=== PATIENT | male | born 1970 | race African-American/Black ===

== ENCOUNTER 2016-09-12 13:28 | Emergency (ER) | payer OTHER ==
[2016-09-12 13:47] VITALS: TEMP 98.1; BMI 29.9
[2016-09-12] MEDS ORDERED: KETOROLAC TROMETHAMINE 60 MG/2 ML VIAL IM ONE (13:54)
--- NOTE | 2016-09-12 13:56 | PDOC ---
History of Present Illness - General Chief Complaint: Pain, Acute Stated Complaint: LEFT SHOULDER PAIN Time Seen by Provider: 09/12/16 13:49 - History of Present Illness Initial Comments: 09/12/16 14:06 Chief complaint: Left shoulder pain History of present illness: Patient complains of gradual onset of pain in the left shoulder with difficulty raising his arm for several days. No injury, no weight lifting or other exercise, no past history of shoulder pain or bone or joint disease. Taking Advil without relief Review of systems: No recent fevers/chills, URI symptoms, sore throat, cough, chest pain, shortness of breath, abdominal pain, nausea, vomiting, diarrhea. Remainder systems reviewed and found to be negative Past medical history: No serious medical or surgical illnesses past or present including hypertension or diabetes. No tobacco alcohol or nonprescription drugs. 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 Afebrile, vital signs normal PERRLA, ENT clear Neck supple without bruit mass or nodes. No point tenderness or deformity of the cervical vertebrae Lungs clear to P&A full breath sounds bilaterally CV S1 and S2 normal without murmur or gallop pulses full and symmetric no JVD or edema Abdomen benign Neurological C2 to 12 intact. No demonstrable focal sensory deficits. There is inability to fully abduct the left arm due to pain. But this does not appear to be a paralysis Extremities: Left shoulder is without deformity or point tenderness. There is limited range of motion actively and passively to approximately 90 due to pain. Circulatory intact. Good pulses and capillary refill. No demonstrable sensory deficits. 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 Plan: X-ray, and analgesic and anti-inflammatory and may be muscle relaxant. Further evaluation depending on results of the x-ray. Past History - Past Medical History Allergies/Adverse Reactions: Allergies Allergy/AdvReac Type Severity Reaction Status Date / Time No Known Allergies Allergy Verified 09/12/16 13:29 Home Medications: Ambulatory Orders Cyclobenzaprine HCl [Flexeril 10 mg] 10 mg PO TID #15 tablet 09/12/16 Ketorolac Tromethamine [Toradol] 10 mg PO Q6H #20 tablet 09/12/16 Other medical history: DENIES - Immunization History Immunization Up to Date: Yes - Psycho/Social/Smoking Cessation Hx Anxiety: No Suicidal Ideation: No Smoking History: Never smoked Information on smoking cessation initiated: No Hx Alcohol Use: No Drug/Substance Use Hx: No Substance Use Type: None *Physical Exam - Vital Signs Last Vital Signs Temp Pulse Resp BP Pulse Ox 98.1 F 76 20 146/105 97 09/12/16 13:29 09/12/16 13:29 09/12/16 13:29 09/12/16 13:29 09/12/16 13:29 Medical Decision Making - Medical Decision Making 09/12/16 15:18 X-ray is negative. Patient with considerable pain relief after Toradol. Sling for rest. Continue Toradol and Flexeril. Follow-up with orthopedist. Patient is informed of his high blood pressure. While this may be due to pain, he is advised to have it rechecked in 3-5 days with his primary physician, and to consider treatment if it remains elevated or worsens. He understands and agrees. *DC/Admit/Observation/Transfer Diagnosis at time of Disposition: Tendinitis of left shoulder - Discharge Dispostion Disposition: HOME Condition at time of disposition: Improved Admit: No - Prescriptions Prescriptions: Cyclobenzaprine HCl [Flexeril 10 mg] 10 mg PO TID #15 tablet Ketorolac Tromethamine [Toradol] 10 mg PO Q6H #20 tablet - Referrals Referrals: Jared Hess MD [Staff Physician] - 1 week - Patient Instructions Printed Discharge Instructions: DI for Shoulder Sprain, How to Use a Sling Additional Instructions: Your blood pressure is elevated today to a moderate extent. This may be due to your pain, however, it needs to be closely followed and rechecked within 3-5 days by your primary physician. If it doesn't improve or worsens, he may need treatment to avoid serious problems with her heart or your brain in the future. - Post Discharge Activity Work/School Note: Back to Work
[2016-09-12 14:53] VITALS: BP 158/111; PULSE 67
== END 2016-09-12 15:21 | disposition home or self-care (01) ==
LOC: FER 13:28
PROC: 3E0233Z Introduction of Anti-inflammatory into Muscle, Percutaneous Approach (ICD-10-PCS; principal; 2016-09-12)
DX: M75.92 Shoulder lesion, unspecified, left shoulder (principal)
CPT/HCPCS: 73030-TC-LT; 96372; 99283-25

== ENCOUNTER 2016-09-14 05:01 | Emergency (ER) | payer OTHER ==
[2016-09-14 05:07] VITALS: BP 150/112; PULSE 74; TEMP 97.6; BMI 29.9
[2016-09-14] MEDS ORDERED: KETOROLAC TROMETHAMINE 60 MG/2 ML VIAL ONE (05:20)
[2016-09-14] MEDS ORDERED: KETOROLAC TROMETHAMINE 60 MG/2 ML VIAL IM ONE (05:20)
--- NOTE | 2016-09-14 05:21 | PDOC ---
History of Present Illness - General Chief Complaint: Pain Stated Complaint: LT SHOULDER PAIN History Source: Patient Exam Limitations: No Limitations - History of Present Illness Initial Comments: 09/14/16 05:20 This is a 45-year-old male who comes in complaining of left shoulder pain. Patient was here 2 days is and was seen and evaluated and had an x-ray which was negative. Patient was referred to an orthopedist but did not see the orthopedist. Patient didn't follow up with his primary care doctor. Patient said that the prescriptions he was given which were for nonnarcotic pain medication are not strong enough and he needs something stronger. Patient otherwise denies no new injury. PAST MEDICAL HISTORY: no significant history PAST SURGICAL HISTORY: no significant history FAMILY HISTORY: no pertinant history SOCIAL HISTORY: Pt lives with family and is employed. MEDICATIONS: reviewed ALLERGIES: As per nursing notes Review of Systems General: No fevers or chills, no weakness, no weight loss HEENT: No change in vision. No sore throat,. No ear pain CardioVascular: No chest pain or shortness of breath Respiratory:No cough, or wheezing. Gastrointestinal: no nausea, vomitting, diarrhea or constipation, No rectal bleeding Genitourinary: No dysuria, hematuria, or frequency Musculoskeletal: No joint or muscle pain or swelling Neurologic: No headache, vertigo, dizziness or loss of consciousness Psychiatric: nor depression Skin: No rashes or easy bruising Endocrine: no increased thirst or abnormal weight change Allergic: no skin or latex allergy All other systems reviewed and normal GENERAL: The patient is awake, alert, and fully oriented, in no acute distress. HEAD: Normal with no signs of trauma. EYES: Pupils equal, round and reactive to light, extraocular movements intact, sclera anicteric, conjunctiva clear. EXTREMITIES: There is decreased range of motion of the patient's left shoulder, there is no swelling, ecchymosis or point tenderness neurovascular distal is intact. NEUROLOGICAL: Normal speech, normal gait. PSYCH: Normal mood, normal affect. SKIN: Warm, Dry, normal turgor, no rashes or lesions noted. Assessment and plan: Explained to patient that this is a problem that requires an orthopedist as it is not getting better with traditional nonnarcotic treatment. Explained to patient I did not want to give him narcotic pain medication for a chronic problem and that it was important that he follow-up with a orthopedist. Told patient he should continue to take the medication he is on and I did give him a shot of Toradol here in the emergency room. Told him he should see the orthopedist today if at all possible. Past History - Past Medical History Allergies/Adverse Reactions: Allergies Allergy/AdvReac Type Severity Reaction Status Date / Time No Known Allergies Allergy Verified 09/12/16 13:29 Home Medications: Ambulatory Orders Cyclobenzaprine HCl [Flexeril 10 mg] 10 mg PO TID #15 tablet 09/12/16 Ketorolac Tromethamine [Toradol] 10 mg PO Q6H #20 tablet 09/12/16 - Immunization History Immunization Up to Date: Yes - Psycho/Social/Smoking Cessation Hx Anxiety: No Suicidal Ideation: No Smoking History: Never smoked Hx Alcohol Use: No Drug/Substance Use Hx: No Substance Use Type: None *Physical Exam - Vital Signs Last Vital Signs Temp Pulse Resp BP Pulse Ox 97.6 F 74 16 150/112 98 09/14/16 05:05 09/14/16 05:05 09/14/16 05:05 09/14/16 05:05 09/14/16 05:05 *DC/Admit/Observation/Transfer Diagnosis at time of Disposition: Tendinitis of left shoulder - Discharge Dispostion Disposition: HOME Condition at time of disposition: Stable Admit: No - Patient Instructions Additional Instructions: Continue to take the medications were prescribed. In addition to that you can also take Tylenol. Call the orthopedist today if he needed an orthopedist call Dr. Vanessa at for an appointment. Return to the emergency department immediately with ANY new, persistent or worsening symptoms. Continue any medications as previously prescribed by your physician. You should follow up with your primary doctor as soon as possible regarding today's emergency department visit. . Please make sure your doctor reviews the results of your emergency evaluation. Thank you for coming to the Emergency Department today for your care. It was a pleasure to see you today. Please note that your evaluation is INCOMPLETE until you follow-up with your doctor.
== END 2016-09-14 05:27 | disposition home or self-care (01) ==
LOC: FER 05:01
PROC: 3E0233Z Introduction of Anti-inflammatory into Muscle, Percutaneous Approach (ICD-10-PCS; principal; 2016-09-14)
DX: M75.22 Bicipital tendinitis, left shoulder (principal)
CPT/HCPCS: 96372; 99282-25

== ENCOUNTER 2016-12-21 23:21 | Emergency (ER) | payer BC, OTHER ==
[2016-12-21 23:26] VITALS: BP 144/92; PULSE 88; TEMP 99.1; BMI 29.9
[2016-12-21] MEDS ORDERED: predniSONE 20 MG TABLET (UD) PO ONE (23:30)
[2016-12-21] MEDS ORDERED: IBUPROFEN 600 MG TABLET (FP) PO ONE ×2 (23:30→23:35)
--- NOTE | 2016-12-21 23:31 | PDOC ---
History of Present Illness - General Chief Complaint: Sore Throat Stated Complaint: SORE THROAT Time Seen by Provider: 12/21/16 23:25 History Source: Patient Exam Limitations: No Limitations - History of Present Illness Initial Comments: 12/21/16 23:32 This is a 46-year-old male who comes in complaining of sore throat and pain in his neck with swallowing. Patient denies any headache, chest pain, cough, congestion, fever, chills or body aches. Patient denies any other complaints. Patient did not take anything for the pain. Patient denies any change in his voice. Patient is able to swallow his secretions. PAST MEDICAL HISTORY: no significant history PAST SURGICAL HISTORY: no significant history FAMILY HISTORY: no pertinant history SOCIAL HISTORY: Pt lives with family and is employed. MEDICATIONS: reviewed ALLERGIES: As per nursing notes Review of Systems General: No fevers or chills, no weakness, no weight loss HEENT: No change in vision. Sore throat+ CardioVascular: No chest pain or shortness of breath Respiratory:No cough, or wheezing. Gastrointestinal: no nausea, vomitting, diarrhea or constipation, No rectal bleeding Genitourinary: No dysuria, hematuria, or frequency Musculoskeletal: No joint or muscle pain or swelling Neurologic: No headache, vertigo, dizziness or loss of consciousness Psychiatric: nor depression Skin: No rashes or easy bruising Endocrine: no increased thirst or abnormal weight change Allergic: no skin or latex allergy All other systems reviewed and normal GENERAL: The patient is awake, alert, and fully oriented, in no acute distress. HEAD: Normal with no signs of trauma. EYES: Pupils equal, round and reactive to light, extraocular movements intact, sclera anicteric, conjunctiva clear. THROAT: Posterior oropharynx is some mild erythema, tonsils are otherwise normal and there is no exudate NECKIs supple there is no meningeal signs: There is some small bilateral submandibular lymphadenopathy anteriorly EXTREMITIES: Normal range of motion, no edema. NEUROLOGICAL: Normal speech, normal gait. PSYCH: Normal mood, normal affect. SKIN: Warm, Dry, normal turgor, no rashes or lesions noted. Assessment and plan: This is a 46-year-old male with a mild pharyngitis most likely viral as patient does not have fever. Patient given prednisone for the inflammatory response of the pharyngitis and Motrin for pain and will follow-up with his primary care doctor as Past History - Past Medical History Allergies/Adverse Reactions: Allergies Allergy/AdvReac Type Severity Reaction Status Date / Time No Known Allergies Allergy Verified 09/12/16 13:29 Home Medications: Ambulatory Orders NK [No Known Home Medication] 12/21/16 Other medical history: DENIES - Immunization History Immunization Up to Date: Yes - Suicide/Smoking/Psychosocial Hx Smoking History: Never smoked Hx Alcohol Use: No Drug/Substance Use Hx: No Substance Use Type: None *Physical Exam - Vital Signs Last Vital Signs Temp Pulse Resp BP Pulse Ox 99.1 F 88 16 144/92 98 12/21/16 23:24 12/21/16 23:24 12/21/16 23:24 12/21/16 23:24 12/21/16 23:24 *DC/Admit/Observation/Transfer Diagnosis at time of Disposition: Acute viral pharyngitis - Discharge Dispostion Disposition: HOME Condition at time of disposition: Stable Admit: No - Patient Instructions Additional Instructions: For the sore throat and neck pain take ibuprofen 3 tablets 3 times a day with food don't take on an empty stomach. Return to the emergency department immediately with ANY new, persistent or worsening symptoms. Continue any medications as previously prescribed by your physician. You should follow up with your primary doctor as soon as possible regarding today's emergency department visit. . Please make sure your doctor reviews the results of your emergency evaluation. Thank you for coming to the Emergency Department today for your care. It was a pleasure to see you today. Please note that your evaluation is INCOMPLETE until you follow-up with your doctor.
[2016-12-21] MEDS ORDERED: predniSONE 20 MG TABLET (UD) ONE (23:35)
== END 2016-12-21 23:39 | disposition home or self-care (01) ==
LOC: FER 23:21
DX: J02.8 Acute pharyngitis due to other specified organisms (principal); B97.89 Other viral agents as the cause of diseases classified elsewhere
CPT/HCPCS: 99281-25

== ENCOUNTER 2018-07-21 13:58 | Emergency (ER) | payer BC ==
[2018-07-21 14:08] VITALS: BP 135/95; PULSE 81; TEMP 98.5; BMI 29.9
--- NOTE | 2018-07-21 14:29 | PDOC ---
History of Present Illness - General Chief Complaint: Wound Stated Complaint: BOIL TO RIGHT AXILLA Time Seen by Provider: 07/21/18 14:21 - History of Present Illness Initial Comments: 07/21/18 15:02 47 years old no cigarette past medical history presents with abscess to right axilla no history of similar now starting to drain on its own Fever no chills swelling around the area. Past History - Past Medical History Allergies/Adverse Reactions: Allergies Allergy/AdvReac Type Severity Reaction Status Date / Time No Known Allergies Allergy Verified 07/21/18 14:01 Home Medications: Ambulatory Orders Clindamycin [Cleocin -] 450 mg PO Q8H #63 capsule 07/21/18 COPD: No Other medical history: DENIES - Immunization History Immunization Up to Date: Yes - Suicide/Smoking/Psychosocial Hx Smoking History: Never smoked Hx Alcohol Use: No Drug/Substance Use Hx: No Substance Use Type: None Review of Systems - Review of Systems Comments:: 07/21/18 15:02 ROS: A complete review of 10 out of 10 review of systems is taken and is negative apart from what is previously mentioned below and in the HPI. *Physical Exam - Vital Signs Last Vital Signs Temp Pulse Resp BP Pulse Ox 98.5 F 81 16 135/95 100 07/21/18 14:00 07/21/18 14:00 07/21/18 14:00 07/21/18 14:00 07/21/18 14:00 - Physical Exam Comments: 07/21/18 15:04 Vitals: Triage Vital signs reviewed General Appearance: no acute distress, well nourished well developed, Head: Atraumatic, Chest Wall: Nontender Extremities: Full range of motion to all extremities, no cyanosis, clubbing, or edema Skin: Warm and dry, 3 cm x 3 cm abscess to right axilla with surrounding cellulitis Psych: normal mood, normal affect General Appearance: Yes: Nourished Procedures - Incision and Drainage I&D Site: Right: Axilla Betadine cleansed: Yes Anesthesia: 2% Lidocaine Volume(ml): 10 Blade Size: 11 Iodinated Packin/2 in Medical Decision Making - Medical Decision Making 07/21/18 15:09 Moderate sized axilla abscess 3 cm x 3 cm in size and drained with approximately 10-15 mL of purulent discharge drained Packed with half-inch perform dressing Given surrounding cellulitis and penicillin ALLERGY place and placed on 7 day course of clindamycin will return in 2 days for packing change. Findings, the need for follow-up and strict return instructions discussed with patient. *DC/Admit/Observation/Transfer Diagnosis at time of Disposition: Abscess - Discharge Dispostion Disposition: HOME Condition at time of disposition: Stable Decision to Admit order: No - Referrals Referrals: [facility] [place] [Provider Group] - Patient Instructions Printed Discharge Instructions: DI for Incision and Drainage of a Skin Abscess Additional Instructions: Leave packing in place keep covered with gauze. Return to ED in 2 days for packing change. Clindamycin as prescribed. Take with an over the counter probiotic as directed on package. Return to ED for any fever severe worsening infection or for any concerns. - Post Discharge Activity
[2018-07-21] MEDS ORDERED: LIDOCAINE HCL 2% (50ML VIAL) SQ ONE (14:30)
[2018-07-21] MEDS ORDERED: LIDOCAINE HCL 2% (20ML MULTI-DOSE VIAL) NR ONE (14:34)
[2018-07-21] MEDS ORDERED: KETOROLAC TROMETHAMINE 30 MG/1 ML VIAL IM ONE (15:20)
[2018-07-21] MEDS ORDERED: KETOROLAC TROMETHAMINE 30 MG/1 ML VIAL ONE (15:30)
== END 2018-07-21 15:40 | disposition home or self-care (01) ==
LOC: FER 13:58
PROC: 3E0233Z Introduction of Anti-inflammatory into Muscle, Percutaneous Approach (ICD-10-PCS; principal; 2018-07-21)
PROC: 0H9BXZZ Drainage of Right Upper Arm Skin, External Approach (ICD-10-PCS; 2018-07-21)
DX: L02.411 Cutaneous abscess of right axilla (principal)
CPT/HCPCS: 10060; 96372; 99282-25

== ENCOUNTER 2018-07-23 14:58 | Emergency (ER) | payer BC ==
--- NOTE | 2018-07-23 15:02 | PDOC ---
History of Present Illness - General Chief Complaint: Revisit,Wound Recheck Stated Complaint: PACKING REMOVAL RIGHT AXILLA Past History - Past Medical History Allergies/Adverse Reactions: Allergies Allergy/AdvReac Type Severity Reaction Status Date / Time No Known Allergies Allergy Verified 07/23/18 14:59 Home Medications: Ambulatory Orders Clindamycin [Cleocin -] 450 mg PO Q8H #63 capsule 07/21/18 COPD: No - Immunization History Immunization Up to Date: Yes - Suicide/Smoking/Psychosocial Hx Smoking History: Never smoked Hx Alcohol Use: No Drug/Substance Use Hx: No Substance Use Type: None *DC/Admit/Observation/Transfer - Discharge Dispostion Condition at time of disposition: Stable - Referrals - Patient Instructions - Post Discharge Activity
[2018-07-23 15:07] VITALS: BP 123/92; PULSE 73; TEMP 98.6; BMI 29.9
--- NOTE | 2018-07-23 15:17 | PDOC ---
Attending Attestation - Resident Resident Name: Haroldo Charles - ED Attending Attestation I have performed the following: I have examined & evaluated the patient, The case was reviewed & discussed with the resident, I agree w/resident's findings & plan, Exceptions are as noted - HPI HPI: 07/23/18 15:15 Status post I&D of abscess right axilla. Small amount of drainage persists. Swelling resolved. Pain resolved. Continuing clindamycin - Physicial Exam PE: 07/23/18 15:15 No swelling. Packing removed. Wound open. Minimal drainage. No surrounding erythema or warmth or other sign of persistent infection - Medical Decision Making 07/23/18 15:16 Assessment: Abscess drained, resolving well. Symptoms resolved Plan: Leave open, finish antibiotics, recheck if there is any worsening of symptoms. Fully ambulatory in no pain or other distress at discharge to follow- up as needed
--- NOTE | 2018-07-23 15:24 | PDOC ---
Suture Removal/Wound Check HPI - History of Present Illness Chief Complaint: Revisit,Wound Recheck Stated Complaint: PACKING REMOVAL RIGHT AXILLA Time Seen by Provider: 07/23/18 15:14 History Source: Yes: Patient, Old Records Exam Limitations: Yes: No Limitations Treated at: [facility] ED Date of Last ED visit: 07/21/18 - Previous ED Treatment Type of procedure performed on last visit: Yes: I&D of Abscess (Right Axilla) Antibiotics Prescribed: Yes (Clindamycin ) - Onset of Previous Treatment Comment:: 47 y/o male presenting to [facility] ER for 2 day wound check s/p R axilla I&D at this department. Has changed packing once. States discharge has significantly decreased. Not soaking through the dressing. Pain is tolerable. Taking prescribed antibiotics without difficulty. Denies fevers, chills, diaphoresis, chest pain, or SOB. Past History - Past Medical History Allergies/Adverse Reactions: Allergies Allergy/AdvReac Type Severity Reaction Status Date / Time No Known Allergies Allergy Verified 07/23/18 14:59 Home Medications: Ambulatory Orders Clindamycin [Cleocin -] 450 mg PO Q8H #63 capsule 07/21/18 COPD: No - Immunization History Immunization Up to Date: Yes - Suicide/Smoking/Psychosocial Hx Smoking History: Never smoked Information on smoking cessation initiated: No Hx Alcohol Use: No Drug/Substance Use Hx: No Substance Use Type: None Suture Removal/Wound Check PE - Physical Exam Laceration/Wound Check Symptoms: reports: Discharge (Trace serosanguinous discharge on bandage.). denies: Fever, Redness, Bleeding *Review of Systems - Review of Systems Constitutional: No: Chills, Fever Respiratory: No: Shortness of Breath Cardiac (ROS): No: Chest Pain *Physical Exam - Vital Signs Last Vital Signs Temp Pulse Resp BP Pulse Ox 98.6 F 73 16 123/92 98 07/23/18 14:59 07/23/18 14:59 07/23/18 14:59 07/23/18 14:59 07/23/18 14:59 Medical Decision Making - Medical Decision Making Bandage taken down. Packing removed. Site well appearing without obvious signs of infection. No reported S/S of infection. New clean and dry bandage placed without packing. Pt to f/u with PCP or general surgeon. Will continue antibiotics as previously prescribed. Return precautions provided. Pt expressed verbal agreement with plan. *DC/Admit/Observation/Transfer Diagnosis at time of Disposition: Wound check, abscess - Discharge Dispostion Disposition: HOME Condition at time of disposition: Good Decision to Admit order: No - Referrals Referrals: Elian Tinsley [Non Staff, Medical] - Raleigh Pinzon MD [Staff Physician] - - Patient Instructions Printed Discharge Instructions: DI for Incision and Drainage Additional Instructions: You were seen today for a two day wound check. The area is well appearing. The packing was removed and a new bandage was placed. You do not need to place any more packing inside. Keep it covered with a clean and dry dressing. Change the bandage every 24 hours or so. You can shower but do not submerge the wound. Continue taking the Clindamycin prescribed at your last visit. Follow up with your primary care doctor within the next 1.5 - 2 weeks to make sure the area is healing. You can also follow up with a general surgeon. I have placed a referral for you to see Dr. Pinzon. You would need to call the office to make an appointment. The number is included in this packet. Watch for signs of infection, including spreading redness, puss, and fevers/ chills. These are reasons to go the nearest emergency department. Print Language: PASHTO - Post Discharge Activity Forms/Work/School Notes: Back to Work
== END 2018-07-23 15:36 | disposition home or self-care (01) ==
LOC: FER 14:58
DX: Z48.01 Encounter for change or removal of surgical wound dressing (principal)
CPT/HCPCS: 99281-25

== ENCOUNTER 2021-03-03 01:05 | Emergency (ER) | payer BC ==
[2021-03-03 01:15] VITALS: BP 145/95; PULSE 100; TEMP 99; BMI 29.9
[2021-03-03] MEDS ORDERED: guaiFENesin/D-METHORPHAN HB 10 ML UNIT-DOSE CUPS ONE (01:45)
[2021-03-03] MEDS ORDERED: guaiFENesin/D-METHORPHAN HB 10 ML UNIT-DOSE CUPS PO ONE (01:46)
[2021-03-07 09:08] LABS: SARS-CoV-2 NAA Not Detected (Not Detected)
== END 2021-03-03 01:52 | disposition home or self-care (01) ==
LOC: FER 01:05
DX: J40 Bronchitis, not specified as acute or chronic (principal)
CPT/HCPCS: 87804; 99283-25; C9803; U0003; U0005